=== PATIENT | female | born 1980 | race African-American/Black ===

== ENCOUNTER → 2016-08-24 | Outpatient (CLI) | payer OTHER | LOC: ULTRA 10:46 | DX: R10.11 Right upper quadrant pain (principal); R11.0 Nausea ==

== ENCOUNTER → 2020-11-04 | Outpatient (CLI) | payer OTHER, BC | LOC: MRI 11:37 | PROVIDERS: ATTEND Family Medicine | DX: S62.341A Nondisplaced fracture of base of second metacarpal bone, left hand, initial encounter for closed fracture (principal); S60.222A Contusion of left hand, initial encounter; M25.532 Pain in left wrist; M67.432 Ganglion, left wrist; X58.XXXA Exposure to other specified factors, initial encounter; Y92.89 Other specified places as the place of occurrence of the external cause; Y93.89 Activity, other specified; Y99.8 Other external cause status ==

== ENCOUNTER → 2021-01-31 | Outpatient (CLI) | payer BC, OTHER | LOC: ULTRA 08:03 | PROVIDERS: ATTEND Family Medicine | DX: R10.11 Right upper quadrant pain (principal) ==